=== PATIENT | female | born 1980 | race Asian ===

== ENCOUNTER 2017-12-23 11:03 | Emergency (ER) | payer OTHER ==
[~2017-12-23] VITALS: Ht 154.9 cm; Wt 72.1 kg
[2017-12-23 11:10] VITALS: BP 143/88
== END 2017-12-23 13:39 | disposition left against medical advice (07) ==
LOC: ED 11:03
DX: S52.691A Other fracture of lower end of right ulna, initial encounter for closed fracture (principal); V89.2XXA Person injured in unspecified motor-vehicle accident, traffic, initial encounter; Y93.89 Activity, other specified; Y99.8 Other external cause status; Y92.89 Other specified places as the place of occurrence of the external cause

== ENCOUNTER 2017-12-25 09:57 | Emergency (ER) | payer OTHER ==
[~2017-12-25] VITALS: Ht 152.4 cm; Wt 71.2 kg
[2017-12-25 10:06] VITALS: Ht 152.4 cm; Wt 71.2 kg
[2017-12-25 10:51] VITALS: BP 115/89
== END 2017-12-25 11:22 | disposition home or self-care (01) ==
LOC: ED 09:57
DX: S52.91XA Unspecified fracture of right forearm, initial encounter for closed fracture (principal); I10 Essential (primary) hypertension; K21.9 Gastro-esophageal reflux disease without esophagitis; J45.909 Unspecified asthma, uncomplicated; V49.9XXA Car occupant (driver) (passenger) injured in unspecified traffic accident, initial encounter; Y93.89 Activity, other specified; Y92.89 Other specified places as the place of occurrence of the external cause; Y99.8 Other external cause status
CPT/HCPCS: J3010

== ENCOUNTER 2019-07-14 04:47 | Emergency (ER) | payer MEDICAID ==
[~2019-07-14] VITALS: Ht 152.4 cm; Wt 63.5 kg
[2019-07-14 04:54] VITALS: Ht 152.4 cm; Wt 63.5 kg
[2019-07-14 05:36] VITALS: BP 172/113
== END 2019-07-14 05:36 | disposition home or self-care (01) ==
LOC: ED 04:47
DX: N39.0 Urinary tract infection, site not specified (principal); F17.210 Nicotine dependence, cigarettes, uncomplicated; I10 Essential (primary) hypertension; J45.909 Unspecified asthma, uncomplicated; K21.9 Gastro-esophageal reflux disease without esophagitis
CPT/HCPCS: 99406

== ENCOUNTER 2019-08-02 01:23 | Emergency (ER) | payer MEDICAID ==
[~2019-08-02] VITALS: Ht 165.1 cm; Wt 74.6 kg
[2019-08-02 01:28] VITALS: Ht 165.1 cm; Wt 74.6 kg
[2019-08-02 02:16] LABS: CALCIUM 8.6 mg/dL (8.5-10.1); CARBON DIOXIDE 30.9 mmol/L (21-32); CHLORIDE SERUM 103 mmol/L (98-107); CREATININE SERUM 0.8 mg/dL (0.6-1.0); GFR1 > 60 mL/min; GLUCOSE SERUM 98 mg/dL (74-106); POTASSIUM SERUM 3.6 mmol/L (3.5-5.1); SODIUM SERUM 142 mmol/L (136-145)
[2019-08-02 02:21] LABS: ALBUMIN 3.5 g/dL (3.4-5.0); ALKALINE PHOSPHATASE 88 U/L (46-116); ALT/SGPT 28 U/L (14-59); AST/SGOT 7 U/L (15-37); TOTAL PROTEIN, SERUM 7.7 g/dL (6.4-8.2)
[2019-08-02 02:34] LABS: BASOPHIL % 0.3 % (0-2); PLATELET COUNT 329 x10^3mcL (130-400); RED CELL DISTRIBUTION WIDTH 12.6 % (11.5-14.5)
[2019-08-02 03:31] VITALS: BP 128/80
== END 2019-08-02 04:20 | disposition home or self-care (01) ==
LOC: ED 01:23
PROVIDERS: Emergency Medicine
DX: R10.31 Right lower quadrant pain (principal)
CPT/HCPCS: 36415; J1885

== ENCOUNTER 2019-11-21 02:12 | Emergency (ER) | payer OTHER, MEDICAID ==
[~2019-11-21] VITALS: Ht 154.9 cm; Wt 78.0 kg
[2019-11-21 02:28] VITALS: Ht 154.9 cm; Wt 78.0 kg
[2019-11-21 03:56] LABS: BASOPHIL % 0.5 % (0-2); PLATELET COUNT 394 x10^3mcL (130-400); RED CELL DISTRIBUTION WIDTH 11.6 % (11.5-14.5)
[2019-11-21 04:03] LABS: CALCIUM 8.5 mg/dL (8.5-10.1); CARBON DIOXIDE 27.8 mmol/L (21-32); CHLORIDE SERUM 101 mmol/L (98-107); CREATININE SERUM 0.6 mg/dL (0.6-1.0); GFR1 > 60 mL/min; GLUCOSE SERUM 127 mg/dL (74-106); POTASSIUM SERUM 3.8 mmol/L (3.5-5.1); SODIUM SERUM 135 mmol/L (136-145)
[2019-11-21 07:15] VITALS: BP 130/73
== END 2019-11-21 07:15 | disposition home or self-care (01) ==
LOC: ED 02:12
PROVIDERS: Emergency Medicine
DX: S16.1XXA Strain of muscle, fascia and tendon at neck level, initial encounter (principal); J45.909 Unspecified asthma, uncomplicated; I10 Essential (primary) hypertension; K21.9 Gastro-esophageal reflux disease without esophagitis; F17.210 Nicotine dependence, cigarettes, uncomplicated; X58.XXXA Exposure to other specified factors, initial encounter; Y93.89 Activity, other specified; Y92.89 Other specified places as the place of occurrence of the external cause; Y99.8 Other external cause status
CPT/HCPCS: J0696; J1885; J2270; J7030; Q9967